=== PATIENT | male | born 1955 | race Caucasian/White ===

== ENCOUNTER 2025-02-23 23:33 | Inpatient (IN) | payer MEDICARE, BC ==
[~2025-02-23] VITALS: Ht 180.3 cm; Wt 69.9 kg
[2025-02-23 23:55] VITALS: BP 142/82; TEMP 98.2; O2SAT 99
[2025-02-24] MEDS: BLOOD SUGAR DIAGNOSTIC 1 EACH STRIP VI ONE (00:10)
[2025-02-24] MEDS ORDERED: MAGNESIUM HYDROXIDE 30 ML LIQUID UDC PO PRN (00:15)
[2025-02-24] MEDS ORDERED: ACETAMINOPHEN 325 MG TABLET PO PRN (00:15)
[2025-02-24] MEDS ORDERED: MAG HYDROX/AL HYDROX/SIMETH 30 ML LIQUID UDC PO PRN (00:15)
[2025-02-24] MEDS ORDERED: ZOLPIDEM 5 MG TABLET PO PRN (00:15)
[2025-02-24] MEDS ORDERED: LORAZEPAM 1 MG TABLET PO PRN ×2 (00:15)
[2025-02-24] MEDS: ZOLPIDEM 5 MG TABLET PO PRN (00:16)
[2025-02-24] MEDS ORDERED: POLY250017 PO (00:35)
[2025-02-24] MEDS ORDERED: FOLI1TAB94 PO (00:35)
[2025-02-24] MEDS ORDERED: LACT10SO58 PO (00:35)
[2025-02-24] MEDS ORDERED: GABA300C PO (00:35)
[2025-02-24] MEDS ORDERED: DICL100G31 TP (00:35)
[2025-02-24] MEDS ORDERED: SENN8.6T19 PO (00:35)
[2025-02-24] MEDS ORDERED: CLON0.5T4 PO (00:35)
[2025-02-24] MEDS ORDERED: QUET100T PO (00:35)
[2025-02-24] MEDS ORDERED: FERR-56 PO (00:35)
[2025-02-24] MEDS ORDERED: ERGO500040 PO (00:35)
[2025-02-24] MEDS ORDERED: GUAI100S9 PO (00:35)
[2025-02-24] MEDS ORDERED: CYAN-51 PO (00:35)
[2025-02-24] MEDS ORDERED: ASCO-376 PO (00:35)
[2025-02-24] MEDS ORDERED: QUET50TA PO (00:35)
[2025-02-24] MEDS ORDERED: TEMA15CA PO (00:35)
[2025-02-24] MEDS ORDERED: LORA0.5T48 GT (00:36)
[2025-02-24] MEDS ORDERED: THIA100T74 PO (00:44)
[2025-02-24] MEDS ORDERED: B CO1TAB6 PO (00:44)
[2025-02-24 08:21] VITALS: BP 149/89; TEMP 98; O2SAT 99
[2025-02-24] MEDS ORDERED: ASCO500T85 PO (08:43)
[2025-02-24] MEDS ORDERED: MAG-55 PO (08:43)
[2025-02-24] MEDS ORDERED: MAGN400O6 PO (08:43)
[2025-02-24] MEDS ORDERED: ACET325T53 PO (15:22)
[2025-02-24] MEDS ORDERED: GUAIFENESIN SUGAR FREE 100 MG/5 ML UDC PO PRN (15:45)
[2025-02-24] MEDS ORDERED: Medication Not On Formulary EA (Polyethylene Glycol 3350 17 GM) PO PRN (15:45)
[2025-02-24 15:49] VITALS: BP 143/79; TEMP 98; O2SAT 99
[2025-02-24] MEDS ORDERED: MIRALAX 17 GM POWD.PACK PO PRN (16:00)
[2025-02-24] MEDS: GABAPENTIN 300 MG CAPSULE PO SCH (17:26)
[2025-02-24] MEDS: ERGOCALCIFEROL 50,000 UNIT CAPSULE PO SCH (18:37)
[2025-02-24 19:44] VITALS: BP 143/74; TEMP 98.3; O2SAT 98
[2025-02-24] MEDS: SENNOSIDES 1 TABLET PO SCH (20:38)
[2025-02-24] MEDS: QUETIAPINE FUMARATE 25 MG TABLET PO SCH (20:39)
[2025-02-25 08:04] VITALS: BP 165/93; TEMP 98.2; O2SAT 98
[2025-02-25] MEDS ORDERED: B COMPLEX WITH VITAMIN C PO SCH (09:00)
[2025-02-25] MEDS: CYANOCOBALAMIN 1,000 MCG TABLET PO SCH (09:13)
[2025-02-25] MEDS: FOLIC ACID 1 MG TABLET PO SCH (09:14)
[2025-02-25] MEDS: FERROUS SULFATE 325 MG TABEC PO SCH (09:14)
[2025-02-25] MEDS: QUETIAPINE FUMARATE 25 MG TABLET PO SCH (09:15)
[2025-02-25] MEDS: ASCORBIC ACID 500 MG TABLET PO SCH (09:15)
[2025-02-25] MEDS: THIAMINE HCL 100 MG TABLET PO SCH (09:15)
[2025-02-25] MEDS: VITAMIN B COMPLEX 1 TABLET PO SCH (09:16)
[2025-02-25] MEDS: ENSURE ENLIVE (VAN) 240 ML LIQUID PO SCH (09:18)
[2025-02-25 15:51] VITALS: BP 128/90; TEMP 98; O2SAT 99
[2025-02-25 20:00] VITALS: BP 135/85; TEMP 98.3; O2SAT 97
[2025-02-26 08:41] VITALS: BP 156/89; TEMP 98.2; O2SAT 98
[2025-02-26 15:25] VITALS: BP 141/79; TEMP 98; O2SAT 99
[2025-02-26 20:00] VITALS: BP 115/73; TEMP 98.3; O2SAT 97
[2025-02-27 08:12] VITALS: BP 124/66; TEMP 98.6; O2SAT 97
[2025-02-27] MEDS: LORAZEPAM 0.5 MG TABLET PO PRN (15:43)
[2025-02-27 16:49] VITALS: BP 138/71; TEMP 98; O2SAT 99
[2025-02-27 20:00] VITALS: BP 129/81; TEMP 98.4; O2SAT 99
[2025-02-27] MEDS: TEMAZEPAM 7.5 MG CAPSULE PO PRN (21:52)
[2025-02-28 08:14] VITALS: BP 147/79; TEMP 98; O2SAT 99
[2025-02-28 16:40] VITALS: BP 139/61; TEMP 98.4; O2SAT 99
[2025-02-28 20:08] VITALS: BP 145/85; TEMP 98.1; O2SAT 98
[2025-03-01 08:10] VITALS: BP 115/79; TEMP 98.3; O2SAT 97
[2025-03-01 16:25] VITALS: BP 109/76; TEMP 98; O2SAT 98
[2025-03-01 19:45] VITALS: BP 133/79; TEMP 97.6; O2SAT 98
[2025-03-02 07:53] VITALS: BP 161/88; TEMP 98.4; O2SAT 98
[2025-03-02 15:05] VITALS: BP 125/58; TEMP 98.2; O2SAT 94
[2025-03-02 20:00] VITALS: BP 130/70; TEMP 97.9; O2SAT 100
[2025-03-03 08:08] VITALS: BP 152/89; TEMP 98; O2SAT 100
[2025-03-03] MEDS ORDERED: ATORVASTATIN 10 MG TABLET PO SCH (21:00)
[2025-03-04] MEDS ORDERED: AMLODIPINE 5 MG TABLET PO SCH (09:00)
== END 2025-03-03 14:30 | DRG 885 ==
LOC: GPS 23:35
PROVIDERS: ADMIT Psychiatry & Neurology Psychosomatic Medicine; ATTEND Internal Medicine
DX: F29 Unspecified psychosis not due to a substance or known physiological condition (principal); F03.93 Unspecified dementia, unspecified severity, with mood disturbance; Z91.199 Patient's noncompliance with other medical treatment and regimen due to unspecified reason; E78.5 Hyperlipidemia, unspecified; I10 Essential (primary) hypertension; K59.09 Other constipation; M15.9 Polyosteoarthritis, unspecified; G62.9 Polyneuropathy, unspecified; F32.A Depression, unspecified; E88.09 Other disorders of plasma-protein metabolism, not elsewhere classified
CPT/HCPCS: 36415